=== PATIENT | male | born 1995 | race American Indian/Alaskan Native ===

== ENCOUNTER 2020-07-03 04:33 | Emergency (ER) | payer OTHER ==
[2020-07-03 04:49] VITALS: BP 113/73
[2020-07-03] MEDS ORDERED: ACETAMINOPHEN 325 MG TAB PO ONE (06:00)
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
[2020-07-03] MEDS ORDERED: TETANUS,DIPH,PERTUSS(ACELL) VACCINE 0.5 ML SYRINGE IM ONE (08:23)
== END 2020-07-03 10:00 ==
LOC: ED 04:33
DX: S01.01XA Laceration without foreign body of scalp, initial encounter (principal); S09.90XA Unspecified injury of head, initial encounter; Z79.899 Other long term (current) drug therapy; Z87.891 Personal history of nicotine dependence; Y04.8XXA Assault by other bodily force, initial encounter; Y93.89 Activity, other specified; Y92.89 Other specified places as the place of occurrence of the external cause; Y99.8 Other external cause status
CPT/HCPCS: 70450; 70486